=== PATIENT | male | born 1980 | race Caucasian/White ===

== ENCOUNTER 2021-10-18 00:40 | Emergency (ER) | payer BC ==
[~2021-10-18] VITALS: Ht 182.9 cm; Wt 90.7 kg
[2021-10-18 00:45] VITALS: BP_SYST 142; BP_SYST 157; BP_DIAS 100
--- NOTE | 2021-10-18 00:48 | NUR ---
TO LOBBY A/W BED AMBULATORY
--- NOTE | 2021-10-18 00:57 | NUR ---
TO BED VIA W/C ASSIST
--- NOTE | 2021-10-18 01:00 | NUR ---
RECEIVED IN BED 10 WITHC/O CHEST PAIN SINCE YESTERDAY, SOB, DIZZINESS, TINGLING ON HIS HANDS. PT IS ANXIOUS AND TACHYPNEIC
--- NOTE | 2021-10-18 01:04 | NUR ---
Dr. Morgan examining patient.
--- NOTE | 2021-10-18 01:05 | NUR ---
18G ESTABLISHED TO RT AC. BLOOD DRAWN VIA IV START AND GIVEN TO SABINA HASSAN TECH
[2021-10-18 01:09] LABS: BASOPHILS # (AUTO) 0.1 K/uL (0.00-0.22); BASOPHILS % (AUTO) 0.8 % (0.0-2.0); EOSINOPHILS # (AUTO) 0.3 K/uL (0-0.4); EOSINOPHILS % (AUTO) 2.9 % (0.0-4.0); HEMATOCRIT 45.6 % (36-52); HEMOGLOBIN 16.2 g/dL (12.0-18.0); LYMPHOCYTES # (AUTO) 3.8 K/uL (2.0-11.5); LYMPHOCYTES % (AUTO) 36.3 % (20.5-51.1); MEAN CORPUSCULAR HEMOGLOBIN 30 pg (27-31); MEAN CORPUSCULAR HGB CONC 36 g/dL (33-37); MEAN CORPUSCULAR VOLUME 84.5 fL (80-94); MONOCYTES # (AUTO) 0.9 K/uL (0.8-1.0); MONOCYTES % (AUTO) 8.5 % (1.7-9.3); NEUTROPHILS # (AUTO) 5.4 K/uL (1.8-7.7); NEUTROPHILS % (AUTO) 51.5 % (42.2-75.2); PLATELET COUNT (AUTO) 340 K/uL (140-450); RED CELL DISTRIBUTION WIDTH 12.9 % (11.6-13.7); WHITE BLOOD COUNT (AUTO) 10.5 K/uL (4.8-10.8)
[2021-10-18] MEDS ORDERED: NACL 0.9% 1,000 ML IV ONE (01:10)
--- NOTE | 2021-10-18 01:56 | NUR ---
PT UNABLE TO VOID AT THIS TIME. PT PROVIDED WITH PO FLUIDS.
[2021-10-18 02:01] LABS: ALBUMIN 4.1 g/dL (3.4-5.0); ANION GAP 16.7 (8-16); ASPARTATE AMINOTRANSFERASE 36 U/L (15-37); CARBON DIOXIDE 21.6 mmol/L (21-32); CHLORIDE 103 mmol/L (98-107); CREATININE 1.4 mg/dL (0.6-1.3); GFR ARICAN-AMERICAN 71 mL/min (>90); GLUCOSE 107 mg/dL (74-106); POTASSIUM 4.3 mmol/L (3.5-5.1); SODIUM SERUM 137 mmol/L (136-145); TOTAL BILIRUBIN 0.6 mg/dL (0.0-1.0); UREA NITROGEN, BLOOD 17 mg/dL (7-18)
--- NOTE | 2021-10-18 02:21 | NUR ---
URINE SPECIMEN COLLECTED AND TAKEN TO LAB.
[2021-10-18 02:40] LABS: BARBITURATE, URINE NEGATIVE ng/ml (NEG <=200); BENZODIAZEPINE, URINE NEGATIVE ng/mL (NEG <=200); CANNABINOID, URINE NEGATIVE ng/mL (NEG <=50); COCAINE, URINE POSITIVE ng/mL (NEG <=300); OPIATE, URINE NEGATIVE ng/mL (NEG <=2000); PHENCYCLIDINE SCREEN,URINE NEGATIVE ng/mL (NEG <=25)
[2021-10-18] MEDS ORDERED: LORazepam 2 MG/ML VIAL IVP ONE (02:45)
--- NOTE | 2021-10-18 03:00 | NUR ---
AWAKE, REMAINS ANXIOUS. REFUSES ATIVAN
[2021-10-18 03:55] VITALS: BP 138/84
--- NOTE | 2021-10-18 03:55 | NUR ---
Patient discharged with v/s stable. Written and verbal after care instructions given and explained. Patient verbalized understanding. Ambulatory with steady gait. All questions addressed prior to discharge. Advised to follow up with PMD.
== END 2021-10-18 03:55 | disposition home or self-care (01) ==
LOC: MED 00:40
DX: F15.10 Other stimulant abuse, uncomplicated (principal); F14.10 Cocaine abuse, uncomplicated; R07.2 Precordial pain; N17.9 Acute kidney failure, unspecified; R00.0 Tachycardia, unspecified; Z98.890 Other specified postprocedural states
CPT/HCPCS: 36415; 71045; 80053; 80305; 84484; 85025; 85379; 93005; 96360; 99285; J2060; J7030; Q0092